=== PATIENT | female | born 1955 | race African-American/Black ===

== ENCOUNTER 2017-11-28 20:48 | Inpatient (IN) | payer MEDICAID, OTHER ==
[~2017-11-28] VITALS: Ht 152.4 cm; Wt 62.9 kg
[2017-11-28] MEDS ORDERED: ONDANSETRON HCL 4MG/2ML VIAL IV STA (21:12)
[2017-11-28] MEDS ORDERED: MORPHINE SULFATE 4 MG/ML CPJ (NOT FOR IM USE) IV STA (21:12)
[2017-11-28] MEDS ORDERED: HYDRALAZINE 20MG/ML VIAL IV ONE (21:15)
[2017-11-28 21:50] LABS: CHLORIDE 101 mEq/L (98-107)
[2017-11-28 21:51] LABS: INR 1.1; PROTHROMBIN TIME 11.8 sec (9.4-11.6)
[2017-11-28 21:55] LABS: AMMONIA 27 uMol/L (<32); ETHANOL BLOOD < 10 mg/dL
[2017-11-28 21:59] LABS: CREATINE KINASE 192 IU/L (26-192)
[2017-11-28 22:02] LABS: CARBAMAZEPINE < 0.5 ug/mL (4-12); PHENOBARBITAL < 2.1 ug/mL (15.0-40.0)
[2017-11-28 22:07] LABS: BASOPHILS % 0.7 % (0.0-2.0); HEMATOCRIT. 43.9 % (36.0-48.0); HEMOGLOBIN. 14.9 g/dL (12.0-16.0); LYMPHOCYTES % 11.9 % (20.0-50.0); MEAN CORPUSCULAR HEMOGLOBIN 32.8 pg (28.0-32.0); MEAN CORPUSCULAR VOLUME 96.4 fL (81.0-99.0); MEAN PLATELET VOLUME 7.8 fl (7.4-10.4); MONOCYTES % 7.5 % (2.0-8.0); NEUTROPHILS % 79.9 % (40.0-76.0); PLATELET 264 x1000/uL (130-400); RED BLOOD CELL COUNT 4.55 mill/uL (4.2-5.4); RED CELL DISTRIBUTION WIDTH 14.7 % (11.6-14.6)
[2017-11-29] MEDS ORDERED: LORAZEPAM 2MG/ML CPJ IV ONE
[2017-11-29 00:16] LABS: CLARITY URINE CLOUDY (CLEAR); COLOR URINE DARK YELLOW (YELLOW); KETONES URINE TRACE (NEGATIVE); LEUKOCYTE ESTERASE URINE NEGATIVE (NEGATIVE); NITRITE URINE NEGATIVE (NEGATIVE); OCCULT BLOOD URINE 3+ (NEGATIVE); PH URINE 5.5 (4.5-8.0); PROTEIN URINE 2+ (NEGATIVE); SPECIFIC GRAVITY URINE 1.027 (1.005-1.030)
[2017-11-29 00:37] LABS: *COCAINE SCREEN URINE NEGATIVE (NEGATIVE); CANNABINOID URINE SCREEN PRESUMTIVE POSITIVE (NEGATIVE); METHADONE URINE SCREEN NEGATIVE (NEGATIVE); OPIATES URINE SCREEN PRESUMTIVE POSITIVE (NEGATIVE); PHENCYCLIDINE URINE SCREEN NEGATIVE (NEGATIVE)
[2017-11-29 00:38] LABS: *AMPHETAMINES SCREEN URINE NEGATIVE (NEGATIVE); *BARBITURATES SCREEN URINE NEGATIVE (NEGATIVE); *BENZODIAZEPINES SCREEN URINE NEGATIVE (NEGATIVE)
[2017-11-29] MEDS ORDERED: METOCLOPRAMIDE HCL 10MG/2ML VIAL IV ONE (01:30)
[2017-11-29] MEDS ORDERED: KETOROLAC 30MG/ML VIAL IV ONE (01:30)
[2017-11-29 08:00] VITALS: BP 127/60
[2017-11-29] MEDS ORDERED: TRAM50TA3 PO (08:17)
[2017-11-29] MEDS ORDERED: CARI350T PO (08:17)
[2017-11-29] MEDS ORDERED: MAGNESIUM/ALUMINUM HYDROXIDE/SIMETHICONE 30ML UDC PO PRN (10:00)
[2017-11-29] MEDS ORDERED: GUAIFENESIN 200MG/10ML SUGAR FREE UDC PO PRN (10:00)
[2017-11-29] MEDS ORDERED: IPRATROPIUM/ALBUTEROL 0.5-3(2.5)MG/3ML NEB INH PRN (10:00)
[2017-11-29] MEDS ORDERED: NA PHOS,M-B/NA PHOS,DI-BA ENEMA 118ML PR PRN (10:00)
[2017-11-29] MEDS ORDERED: DOCUSATE SODIUM 100MG CAPSULE PO PRN (10:00)
[2017-11-29] MEDS ORDERED: ACETAMINOPHEN 650MG/20.3ML UDC GT PRN (10:00)
[2017-11-29] MEDS ORDERED: HYDROCODONE/ACETAMINOPHEN 5/325MG TABLET PO PRN (10:00)
[2017-11-29] MEDS ORDERED: LORAZEPAM 0.5MG TABLET PO PRN (10:00)
[2017-11-29] MEDS ORDERED: CLONIDINE 0.1MG TABLET PO PRN (10:00)
[2017-11-29] MEDS ORDERED: ACETAMINOPHEN 650MG SUPP PR PRN (10:00)
[2017-11-29] MEDS ORDERED: DIPHENHYDRAMINE 50MG/ML VIAL IV PRN (10:00)
[2017-11-29] MEDS ORDERED: HYDROCODONE/APAP 7.5/325MG 1 TAB TABLET PO PRN (10:00)
[2017-11-29] MEDS ORDERED: LISI40TA4 PO (10:53)
[2017-11-29 10:54] VITALS: BP 127/60
[2017-11-29 12:00] VITALS: BP 147/81
[2017-11-29 13:09] LABS: HEMATOCRIT 41.4 % (36.0-48.0); HEMOGLOBIN 13.8 g/dL (12.0-16.0); MEAN CORPUSCULAR HEMOGLOBIN 32.1 pg (28.0-32.0); PLATELET 244 x1000/uL (130-400); RED BLOOD CELL COUNT 4.32 mill/uL (4.2-5.4); RED CELL DISTRIBUTION WIDTH 14.9 % (11.6-14.6)
[2017-11-29 13:20] LABS: CHLORIDE 101 mEq/L (98-107)
[2017-11-29] MEDS ORDERED: LOSA25TA12 PO (14:28)
[2017-11-29] MEDS: ONDANSETRON HCL 4MG/2ML VIAL IV PRN ×2 (14:38→21:25)
[2017-11-29 16:00] VITALS: BP 132/82
[2017-11-29 16:33] LABS: CREATINE KINASE 304 IU/L (26-192)
[2017-11-29] MEDS ORDERED: POTASSIUM CHLORIDE 20MEQ TABLET SR PO NR (17:30)
[2017-11-29] MEDS ORDERED: CARISOPRODOL 350 MG TABLET PO SCH (18:06)
[2017-11-29] MEDS: LISINOPRIL 20MG TABLET PO SCH (18:46)
[2017-11-29] MEDS: TRAMADOL 50MG TABLET PO SCH (18:47)
[2017-11-29 20:00] VITALS: BP 150/68
[2017-11-29] MEDS ORDERED: CARISOPRODOL 350 MG TABLET PO PRN (20:30)
[2017-11-29] MEDS: ACETAMINOPHEN 325MG TABLET PO PRN (21:25)
[2017-11-29] MEDS: METOPROLOL TARTRATE 25MG TABLET PO SCH (21:25)
[2017-11-29 23:25] LABS: CREATINE KINASE 343 IU/L (26-192)
[2017-11-30] VITALS: BP 142/76
[2017-11-30 04:00] VITALS: BP 126/74
[2017-11-30 07:09] LABS: CHLORIDE 102 mEq/L (98-107)
[2017-11-30 07:15] LABS: PHOSPHORUS 2.3 mg/dL (2.5-4.9)
[2017-11-30 07:16] LABS: HDL CHOLESTEROL 114 mg/dL (40-59); LDL CHOLESTEROL 32 mg/dL (5-100)
[2017-11-30 07:21] LABS: CREATINE KINASE 338 IU/L (26-192); T4 FREE 1.08 ng/dL (0.76-1.46)
[2017-11-30 07:25] LABS: BASOPHILS % 0.8 % (0.0-2.0); EOSINOPHILS % 0.4 % (0.0-5.0); HEMATOCRIT. 39.7 % (36.0-48.0); HEMOGLOBIN. 13.1 g/dL (12.0-16.0); LYMPHOCYTES % 30.8 % (20.0-50.0); MEAN CORPUSCULAR HEMOGLOBIN 31.9 pg (28.0-32.0); MEAN CORPUSCULAR VOLUME 96.9 fL (81.0-99.0); MEAN PLATELET VOLUME 8.2 fl (7.4-10.4); MONOCYTES % 11.3 % (2.0-8.0); NEUTROPHILS % 56.7 % (40.0-76.0); PLATELET 190 x1000/uL (130-400)
[2017-11-30 07:43] LABS: AMMONIA 50 uMol/L (<32)
[2017-11-30 08:00] VITALS: BP 127/69
[2017-11-30] MEDS: LISINOPRIL 20MG TABLET PO SCH (08:41)
[2017-11-30] MEDS: TRAMADOL 50MG TABLET PO SCH (08:42)
[2017-11-30] MEDS: METOPROLOL TARTRATE 25MG TABLET PO SCH ×2 (08:42→20:05)
[2017-11-30 12:00] VITALS: BP 150/88
[2017-11-30] MEDS: ONDANSETRON HCL 4MG/2ML VIAL IV PRN (15:36)
[2017-11-30 15:37] VITALS: BP 158/80
[2017-11-30] MEDS ORDERED: ONDANSETRON HCL 4MG/2ML VIAL IV PRN (19:15)
[2017-11-30 20:00] VITALS: BP 156/86
[2017-11-30] MEDS: ACETAMINOPHEN 325MG TABLET PO PRN (20:05)
[2017-12-01] VITALS: BP 157/78
[2017-12-01 04:00] VITALS: BP 127/63
[2017-12-01 06:04] LABS: BASOPHILS % 0.5 % (0.0-2.0); EOSINOPHILS % 0.5 % (0.0-5.0); HEMATOCRIT. 38.8 % (36.0-48.0); HEMOGLOBIN. 12.9 g/dL (12.0-16.0); LYMPHOCYTES % 26.1 % (20.0-50.0); MEAN CORPUSCULAR HEMOGLOBIN 32.5 pg (28.0-32.0); MEAN CORPUSCULAR VOLUME 97.8 fL (81.0-99.0); MONOCYTES % 11.3 % (2.0-8.0); NEUTROPHILS % 61.6 % (40.0-76.0); PLATELET 177 x1000/uL (130-400); RED BLOOD CELL COUNT 3.96 mill/uL (4.2-5.4); RED CELL DISTRIBUTION WIDTH 14.9 % (11.6-14.6)
[2017-12-01 06:11] LABS: AMMONIA 31 uMol/L (<32)
[2017-12-01 06:35] LABS: CHLORIDE 103 mEq/L (98-107)
[2017-12-01 06:46] LABS: PHOSPHORUS 3.1 mg/dL (2.5-4.9)
[2017-12-01 06:48] LABS: CREATINE KINASE 207 IU/L (26-192)
[2017-12-01 07:50] VITALS: BP 142/63
[2017-12-01] MEDS: TRAMADOL 50MG TABLET PO SCH (08:41)
[2017-12-01] MEDS: METOPROLOL TARTRATE 25MG TABLET PO SCH ×2 (08:42→21:59)
[2017-12-01] MEDS: LISINOPRIL 20MG TABLET PO SCH (08:42)
[2017-12-01] MEDS ORDERED: MAGNESIUM 1 G PREMIX 100 ML IV SCH (11:00)
[2017-12-01 12:00] VITALS: BP 141/75
[2017-12-01] MEDS: METOCLOPRAMIDE HCL 10MG TABLET PO SCH ×2 (13:29→21:59)
[2017-12-01] MEDS: LOSARTAN POTASSIUM 50 MG TABLET PO SCH (15:30)
[2017-12-01 16:00] VITALS: BP 106/50
[2017-12-01 20:00] VITALS: BP 133/63
[2017-12-02] VITALS: BP 112/61
[2017-12-02 04:00] VITALS: BP 115/58
[2017-12-02 06:22] LABS: BASOPHILS % 0.5 % (0.0-2.0); EOSINOPHILS % 0.5 % (0.0-5.0); HEMATOCRIT. 39.3 % (36.0-48.0); LYMPHOCYTES % 22.5 % (20.0-50.0); MEAN CORPUSCULAR HEMOGLOBIN 32.3 pg (28.0-32.0); MEAN CORPUSCULAR VOLUME 97.8 fL (81.0-99.0); MEAN PLATELET VOLUME 8.4 fl (7.4-10.4); MONOCYTES % 12.4 % (2.0-8.0); NEUTROPHILS % 64.1 % (40.0-76.0); PLATELET 179 x1000/uL (130-400); RED BLOOD CELL COUNT 4.02 mill/uL (4.2-5.4); RED CELL DISTRIBUTION WIDTH 14.5 % (11.6-14.6)
[2017-12-02] MEDS: METOCLOPRAMIDE HCL 10MG TABLET PO SCH ×2 (06:23→14:00)
[2017-12-02 07:18] LABS: CHLORIDE 103 mEq/L (98-107)
[2017-12-02 07:27] LABS: AMMONIA 36 uMol/L (<32)
[2017-12-02 07:44] LABS: PHOSPHORUS 3.3 mg/dL (2.5-4.9)
[2017-12-02 07:47] LABS: CREATINE KINASE 137 IU/L (26-192)
[2017-12-02] MEDS: METOPROLOL TARTRATE 25MG TABLET PO SCH ×2 (09:00→14:39)
[2017-12-02] MEDS: LOSARTAN POTASSIUM 50 MG TABLET PO SCH ×2 (09:00→14:39)
[2017-12-02] MEDS: TRAMADOL 50MG TABLET PO SCH (10:07)
[2017-12-02] MEDS ORDERED: METO25TA6 PO (14:53)
[2017-12-02] MEDS ORDERED: DOCU-138 PO (14:53)
[2017-12-02] MEDS ORDERED: METO10TA3 PO (14:53)
[2017-12-02] MEDS ORDERED: LOSA50TA3 PO (14:53)
[2017-12-02 14:56] VITALS: BP 125/66
== END 2017-12-02 15:36 | disposition home or self-care (01) | DRG 254 ==
LOC: ER 21:06 → 7WST 11-29 02:26 → ENRESERV 11-29 04:25
PROVIDERS: ADMIT Internal Medicine; ATTEND Internal Medicine
DX: K43.9 Ventral hernia without obstruction or gangrene (principal); I10 Essential (primary) hypertension; N39.0 Urinary tract infection, site not specified; G89.29 Other chronic pain; E87.6 Hypokalemia; R00.0 Tachycardia, unspecified; M54.9 Dorsalgia, unspecified; Z88.2 Allergy status to sulfonamides
CPT/HCPCS: 36415; 70450; 71045; 74176; 76700; 80048; 80053; 80061; 80156; 80165; 80184; 80185; 80305; 80307; 80329; 81003; 82140; 82550; 82962; 83036; 83690; 83735; 83880; 84100; 84439; 84443; 84481; 84484; 85025; 85027; 85610; 93005; 96374; 96375; 97162; 97165; 99285; G0482; J0360; J1200; J1885; J2060; J2270; J2405; J2765; J3475; J8597

== ENCOUNTER 2018-02-23 11:41 | Emergency (ER) | payer OTHER, MEDICAID ==
[~2018-02-23] VITALS: Ht 152.4 cm; Wt 61.5 kg
[~2018-02-23 11:41] MED LIST: DOCU-138 PO; LOSA50TA3 PO; METO10TA3 PO; METO25TA6 PO; S350 PO; TRAM50TA3 PO
[2018-02-23] MEDS ORDERED: CLONIDINE 0.1MG TABLET PO ONE (12:30)
[2018-02-23 13:22] LABS: EOSINOPHILS % 0.4 % (0.0-5.0); LYMPHOCYTES % 32.7 % (20.0-50.0); MEAN CORPUSCULAR HEMOGLOBIN 31.9 pg (28.0-32.0); MEAN PLATELET VOLUME 7.8 fl (7.4-10.4); MONOCYTES % 11.1 % (2.0-8.0); NEUTROPHILS % 54.8 % (40.0-76.0); PLATELET 221 x1000/uL (130-400); RED BLOOD CELL COUNT 4.07 mill/uL (4.2-5.4); RED CELL DISTRIBUTION WIDTH 15.1 % (11.6-14.6)
[2018-02-23 13:30] LABS: CHLORIDE 108 mEq/L (98-107); INR 1.1; PROTHROMBIN TIME 10.9 sec (9.1-11.1)
[2018-02-23 14:11] LABS: CLARITY URINE CLEAR (CLEAR); COLOR URINE YELLOW (YELLOW); KETONES URINE NEGATIVE (NEGATIVE); LEUKOCYTE ESTERASE URINE NEGATIVE (NEGATIVE); NITRITE URINE NEGATIVE (NEGATIVE); OCCULT BLOOD URINE 2+ (NEGATIVE); PH URINE 5.5 (4.5-8.0); PROTEIN URINE NEGATIVE (NEGATIVE); SPECIFIC GRAVITY URINE 1.017 (1.005-1.030); UROBILINOGEN URINE 0.2 E.U./dL (0.2-1.0)
[2018-02-23 14:49] VITALS: BP 153/84
== END 2018-02-23 14:52 | disposition home or self-care (01) ==
LOC: ER 11:41
DX: I10 Essential (primary) hypertension (principal); R41.82 Altered mental status, unspecified; R00.1 Bradycardia, unspecified; M25.562 Pain in left knee; M25.561 Pain in right knee; R10.9 Unspecified abdominal pain
CPT/HCPCS: 36415; 70450; 71045; 80053; 81003; 84484; 85025; 85610; 93005; 99285

== ENCOUNTER 2019-06-18 23:36 | Inpatient (IN) | payer MEDICAID, OTHER ==
[~2019-06-18] VITALS: Ht 152.4 cm; Wt 61.2 kg
[~2019-06-18 23:36] MED LIST changes: +CARI-166 PO; -S350 PO
[2019-06-19] MEDS ORDERED: SODIUM CHLORIDE 0.9% 1,000 ML IV ONE (02:07)
[2019-06-19] MEDS ORDERED: MORPHINE SULFATE 4 MG/ML CPJ (NOT FOR IM USE) IV STA (02:07)
[2019-06-19] MEDS ORDERED: FAMOTIDINE 20MG/2ML VIAL IV STA (02:07)
[2019-06-19] MEDS ORDERED: ONDANSETRON HCL 4MG/2ML INJ IV STA (02:07)
[2019-06-19 02:45] LABS: BASOPHILS % 1.2 % (0.0-2.0); EOSINOPHILS % 0.6 % (0.0-5.0); HEMATOCRIT. 43.1 % (36.0-48.0); LYMPHOCYTES % 34.9 % (20.0-50.0); MEAN PLATELET VOLUME 7.8 fl (7.4-10.4); MONOCYTES % 9.4 % (2.0-8.0); NEUTROPHILS % 53.9 % (40.0-76.0); PLATELET 247 x1000/uL (130-400); RED BLOOD CELL COUNT 4.53 mill/uL (4.2-5.4)
[2019-06-19 02:49] LABS: CHLORIDE 108 mEq/L (98-107)
[2019-06-19] MEDS ORDERED: IOHEXOL-300 100 ML BOTTLE ONE (04:06)
[2019-06-19 04:57] LABS: INR 1.4; PROTHROMBIN TIME 14.3 sec (9.6-11.0)
[2019-06-19] MEDS ORDERED: DEXT 5%/0.45% NACL 1000ML 1,000 ML IV SCH (08:07)
[2019-06-19] MEDS ORDERED: HYDROCODONE/ACETAMINOPHEN 10/325MG TABLET PO PRN ×2 (08:15→09:15)
[2019-06-19] MEDS ORDERED: HYDRALAZINE 20MG/ML VIAL IV PRN (08:15)
[2019-06-19] MEDS ORDERED: GUAIFENESIN 200MG/10ML SUGAR FREE UDC PO PRN ×2 (08:15→09:15)
[2019-06-19] MEDS ORDERED: MORPHINE SULFATE 2 MG/ML CPJ (NOT FOR IM USE) IV PRN (08:15)
[2019-06-19] MEDS ORDERED: DIPHENHYDRAMINE 50MG/ML VIAL IV PRN ×2 (08:15→09:15)
[2019-06-19] MEDS ORDERED: DOCUSATE SODIUM 100MG CAPSULE PO PRN ×2 (08:15→09:15)
[2019-06-19] MEDS ORDERED: ACETAMINOPHEN 325MG TABLET PO PRN ×2 (08:15→09:15)
[2019-06-19] MEDS ORDERED: ONDANSETRON HCL 4MG/2ML INJ IV PRN (08:15)
[2019-06-19] MEDS ORDERED: MAGNESIUM/ALUMINUM HYDROXIDE/SIMETHICONE 30ML UDC PO PRN ×2 (08:15→09:15)
[2019-06-19] MEDS ORDERED: CLONIDINE 0.1MG TABLET PO PRN ×2 (08:15→09:15)
[2019-06-19] MEDS ORDERED: NA PHOS,M-B/NA PHOS,DI-BA ENEMA 118ML PR PRN ×2 (08:15→09:15)
[2019-06-19] MEDS ORDERED: LORAZEPAM 2MG/ML CPJ IV PRN (08:15)
[2019-06-19] MEDS ORDERED: IPRATROPIUM/ALBUTEROL 0.5-3(2.5)MG/3ML NEB HHN PRN ×2 (08:15→09:15)
[2019-06-19] MEDS ORDERED: POTASSIUM CHLORIDE INJ 40 MEQ in DEXT 5% WATER 250 ML IV ONE (08:30)
[2019-06-19 08:55] VITALS: BP 162/92
[2019-06-19 10:11] VITALS: BP 162/92
[2019-06-19] MEDS: ONDANSETRON HCL 4MG/2ML INJ IV PRN (10:34)
[2019-06-19] MEDS: HYDRALAZINE 20MG/ML VIAL IV PRN (10:34)
[2019-06-19] MEDS ORDERED: POTASSIUM CHLORIDE INJ 40 MEQ in DEXT 5% WATER 250 ML IV SCH (11:30)
[2019-06-19 12:00] VITALS: BP 134/66
[2019-06-19] MEDS: MORPHINE SULFATE 2 MG/ML CPJ (NOT FOR IM USE) IV PRN (12:44)
[2019-06-19] MEDS ORDERED: SODIUM CHLORIDE 0.9% INJ 3ML FLUSH IVF SCH (14:00)
[2019-06-19] MEDS ORDERED: PNEUMOCOCCAL 23-VAL P-SAC VAC 0.5 ML IM ONE (15:00)
[2019-06-19] MEDS ORDERED: AMLO5TAB88 MT (15:33)
[2019-06-19] MEDS ORDERED: [UNRECOGNIZED DRUG - OTHER] (15:33)
[2019-06-19] MEDS ORDERED: mapap PO (15:33)
[2019-06-19] MEDS ORDERED: RAMI10CA19 MT (15:34)
[2019-06-19] MEDS ORDERED: CYCL10TA7 MT (15:34)
[2019-06-19] MEDS: DEXT 5%/0.45% NACL 1000ML 1,000 ML IV SCH ×2 (15:38→23:50)
[2019-06-19] MEDS: SODIUM CHLORIDE 0.9% INJ 3ML FLUSH IVF SCH ×2 (15:46→21:45)
[2019-06-19 16:00] VITALS: BP 120/65
[2019-06-19] MEDS: PANTOPRAZOLE SODIUM 40 MG/VIAL IV SCH (16:58)
[2019-06-19 17:11] LABS: HEMATOCRIT 40.3 % (36.0-48.0); HEMOGLOBIN 13.4 g/dL (12.0-16.0)
[2019-06-19 17:21] LABS: CREATINE KINASE 730 IU/L (26-192)
[2019-06-19 20:00] VITALS: BP 156/89
[2019-06-20] VITALS: BP 135/74
[2019-06-20 01:45] LABS: CREATINE KINASE 634 IU/L (26-192)
[2019-06-20 01:46] LABS: CREATINE KINASE MB FRACTION 2.2 ng/mL (0.5-3.6)
[2019-06-20 04:00] VITALS: BP 156/87
[2019-06-20] MEDS: SODIUM CHLORIDE 0.9% INJ 3ML FLUSH IVF SCH ×3 (06:29→21:58)
[2019-06-20 08:00] VITALS: BP 154/94
[2019-06-20] MEDS: PANTOPRAZOLE SODIUM 40 MG/VIAL IV SCH ×2 (09:06→18:39)
[2019-06-20] MEDS: MORPHINE SULFATE 2 MG/ML CPJ (NOT FOR IM USE) IV PRN ×2 (09:07→22:35)
[2019-06-20 11:03] LABS: BASOPHILS % 0.4 % (0.0-2.0); EOSINOPHILS % 0.2 % (0.0-5.0); HEMATOCRIT. 40.7 % (36.0-48.0); HEMOGLOBIN. 13.5 g/dL (12.0-16.0); LYMPHOCYTES % 23.8 % (20.0-50.0); MEAN CORPUSCULAR HEMOGLOBIN 31.4 pg (28.0-32.0); MEAN PLATELET VOLUME 7.9 fl (7.4-10.4); MONOCYTES % 11.1 % (2.0-8.0); NEUTROPHILS % 64.5 % (40.0-76.0); PLATELET 173 x1000/uL (130-400); RED BLOOD CELL COUNT 4.29 mill/uL (4.2-5.4); RED CELL DISTRIBUTION WIDTH 14.8 % (11.6-14.6)
[2019-06-20 12:00] VITALS: BP 134/79
[2019-06-20] MEDS: DEXT 5%/0.45% NACL 1000ML 1,000 ML IV SCH (12:49)
[2019-06-20 16:00] VITALS: BP 149/88
[2019-06-20] MEDS: LORAZEPAM 2MG/ML CPJ IV PRN (21:58)
[2019-06-21] MEDS: DEXT 5%/0.45% NACL 1000ML 1,000 ML IV SCH ×2 (03:23→18:47)
[2019-06-21] MEDS: SODIUM CHLORIDE 0.9% INJ 3ML FLUSH IVF SCH ×3 (05:13→20:45)
[2019-06-21 08:00] VITALS: BP 112/80
[2019-06-21 08:14] LABS: BASOPHILS % 0.4 % (0.0-2.0); EOSINOPHILS % 1.1 % (0.0-5.0); HEMATOCRIT. 38.2 % (36.0-48.0); HEMOGLOBIN. 12.6 g/dL (12.0-16.0); LYMPHOCYTES % 31.7 % (20.0-50.0); MEAN CORPUSCULAR HEMOGLOBIN 31.4 pg (28.0-32.0); MEAN CORPUSCULAR VOLUME 95.5 fL (81.0-99.0); MEAN PLATELET VOLUME 7.8 fl (7.4-10.4); MONOCYTES % 12.7 % (2.0-8.0); NEUTROPHILS % 54.1 % (40.0-76.0); PLATELET 165 x1000/uL (130-400); RED BLOOD CELL COUNT 4.01 mill/uL (4.2-5.4); RED CELL DISTRIBUTION WIDTH 14.8 % (11.6-14.6)
[2019-06-21 08:19] LABS: CHLORIDE 106 mEq/L (98-107)
[2019-06-21] MEDS: ONDANSETRON HCL 4MG/2ML INJ IV PRN (09:04)
[2019-06-21] MEDS: PANTOPRAZOLE SODIUM 40 MG/VIAL IV SCH ×2 (09:04→18:55)
[2019-06-21] MEDS: MORPHINE SULFATE 2 MG/ML CPJ (NOT FOR IM USE) IV PRN ×3 (09:06→22:50)
[2019-06-21] MEDS ORDERED: POTASSIUM CHLORIDE 20MEQ TABLET SR PO SCH (10:00)
[2019-06-21 12:00] VITALS: BP 134/85
[2019-06-21 16:00] VITALS: BP 134/76
[2019-06-21 20:00] VITALS: BP 176/108
[2019-06-21] MEDS: HYDRALAZINE 20MG/ML VIAL IV PRN (20:46)
[2019-06-21] MEDS: LORAZEPAM 2MG/ML CPJ IV PRN (20:46)
[2019-06-22] VITALS: BP 116/67
[2019-06-22 04:00] VITALS: BP 118/68
[2019-06-22] MEDS: SODIUM CHLORIDE 0.9% INJ 3ML FLUSH IVF SCH (06:24)
[2019-06-22] MEDS: DEXT 5%/0.45% NACL 1000ML 1,000 ML IV SCH (06:30)
[2019-06-22 08:00] VITALS: BP 144/96
[2019-06-22] MEDS: PANTOPRAZOLE SODIUM 40 MG/VIAL IV SCH (08:37)
[2019-06-22] MEDS: MORPHINE SULFATE 2 MG/ML CPJ (NOT FOR IM USE) IV PRN (11:31)
[2019-06-22 11:48] VITALS: BP 144/96
== END 2019-06-22 14:29 | disposition home or self-care (01) | DRG 253 ==
LOC: ER 23:36 → 8WST 06-19 05:12 → EDBEDREQTM 06-19 05:27 → EDBEDREQ 06-19 05:27 → ENRESERV 06-19 07:22 → ER 06-19 09:00 → 6WST 06-21 23:43
PROVIDERS: ADMIT Internal Medicine; ATTEND Internal Medicine
DX: K92.2 Gastrointestinal hemorrhage, unspecified (principal); E87.2 Acidosis; E87.8 Other disorders of electrolyte and fluid balance, not elsewhere classified; K92.0 Hematemesis; K44.9 Diaphragmatic hernia without obstruction or gangrene; E87.6 Hypokalemia; K76.0 Fatty (change of) liver, not elsewhere classified; I10 Essential (primary) hypertension; Z88.2 Allergy status to sulfonamides; Z98.891 History of uterine scar from previous surgery
CPT/HCPCS: 36415; 71045; 74177; 80048; 82270; 82550; 82553; 83605; 84484; 85014; 85018; 86850; 86900; 90732; 93970; 96374; 99291; C9113; J0360; J2060; J2270; J2405; J3480; J3490; J7030; J7060; Q9967

== ENCOUNTER 2019-09-20 13:29 | Emergency (ER) | payer MEDICAID ==
[~2019-09-20] VITALS: Ht 165.1 cm; Wt 68.0 kg
[~2019-09-20 13:29] MED LIST changes: +AMLO5TAB88 MT; -CARI-166 PO; +CYCL10TA7 MT; -DOCU-138 PO; -METO10TA3 PO; +RAMI10CA68 MT; -TRAM50TA3 PO; +mapap PO
[2019-09-20] MEDS ORDERED: HYDROCODONE/ACETAMINOPHEN 5/325MG TABLET PO ONE (16:00)
[2019-09-20] MEDS ORDERED: ONDANSETRON 4MG ODT PO ONE (16:15)
[2019-09-20 18:06] VITALS: BP 112/68
== END 2019-09-20 18:06 | disposition home or self-care (01) ==
LOC: ER 13:29
DX: K40.90 Unilateral inguinal hernia, without obstruction or gangrene, not specified as recurrent (principal); I10 Essential (primary) hypertension; F12.10 Cannabis abuse, uncomplicated; Z98.890 Other specified postprocedural states; Z88.2 Allergy status to sulfonamides; Z79.899 Other long term (current) drug therapy
CPT/HCPCS: 74176; 99284; Q0162

== ENCOUNTER 2021-10-13 13:19 | Emergency (ER) | payer OTHER, MEDICAID ==
[~2021-10-13] VITALS: Ht 160 cm; Wt 59.0 kg
[2021-10-13] MEDS ORDERED: ASPIRIN 81MG TABLET PO ONE (14:15)
[2021-10-13 14:34] LABS: BASOPHILS % 1.1 % (0.0-2.0); EOSINOPHILS % 0.3 % (0.0-5.0); HEMATOCRIT. 43.8 % (36.0-48.0); HEMOGLOBIN. 14.6 g/dL (12.0-16.0); LYMPHOCYTES % 41.7 % (20.0-50.0); NEUTROPHILS % 49.9 % (40.0-76.0); PLATELET 196 x1000/uL (130-400); RED BLOOD CELL COUNT 4.56 mill/uL (4.2-5.4); RED CELL DISTRIBUTION WIDTH 13.5 % (11.6-14.6)
[2021-10-13 14:51] LABS: CHLORIDE 111 mEq/L (98-107)
[2021-10-13 15:07] LABS: *AMPHETAMINES SCREEN URINE NEGATIVE (NEGATIVE); *BARBITURATES SCREEN URINE NEGATIVE (NEGATIVE); *BENZODIAZEPINES SCREEN URINE NEGATIVE (NEGATIVE); *COCAINE SCREEN URINE NEGATIVE (NEGATIVE)
[2021-10-13 15:07] LABS: ETHANOL BLOOD 350 mg/dL
[2021-10-13 15:08] LABS: CANNABINOID URINE SCREEN NEGATIVE (NEGATIVE); METHADONE URINE SCREEN NEGATIVE (NEGATIVE); OPIATES URINE SCREEN NEGATIVE (NEGATIVE); PHENCYCLIDINE URINE SCREEN NEGATIVE (NEGATIVE)
[2021-10-13 15:41] VITALS: BP 120/82
== END 2021-10-13 16:36 | disposition left against medical advice (07) ==
LOC: ER 13:44
DX: F10.129 Alcohol abuse with intoxication, unspecified (principal); I49.9 Cardiac arrhythmia, unspecified; Y90.8 Blood alcohol level of 240 mg/100 ml or more
CPT/HCPCS: 36415; 71045; 80053; 80305; 80320; 83880; 84484; 85025; 93005; 99285; G0480

== ENCOUNTER 2022-01-25 18:27 | Emergency (ER) | payer OTHER, MEDICAID ==
[~2022-01-25] VITALS: Ht 157.5 cm; Wt 68.0 kg
[~2022-01-25 18:27] MED LIST changes: +CYCL10TA21 MT; -CYCL10TA7 MT
[2022-01-25 18:32] VITALS: BP 136/70
[2022-01-25] MEDS ORDERED: ONDANSETRON HCL 4MG/2ML INJ IV STA (18:40)
[2022-01-25] MEDS ORDERED: MORPHINE SULFATE 4 MG/ML CPJ (NOT FOR IM USE) IV STA (18:40)
[2022-01-25 20:01] LABS: BASOPHILS % 0.7 % (0.0-2.0); EOSINOPHILS % 0.4 % (0.0-5.0); HEMATOCRIT. 34.9 % (36.0-48.0); HEMOGLOBIN. 11.2 g/dL (12.0-16.0); LYMPHOCYTES % 41.2 % (20.0-50.0); MEAN CORPUSCULAR HEMOGLOBIN 30.2 pg (28.0-32.0); MEAN CORPUSCULAR VOLUME 94.5 fL (81.0-99.0); MEAN PLATELET VOLUME 7.3 fl (7.4-10.4); MONOCYTES % 8.9 % (2.0-8.0); NEUTROPHILS % 48.8 % (40.0-76.0); PLATELET 223 x1000/uL (130-400); RED BLOOD CELL COUNT 3.69 mill/uL (4.2-5.4); RED CELL DISTRIBUTION WIDTH 15.6 % (11.6-14.6)
[2022-01-25 20:08] LABS: CHLORIDE 111 mEq/L (98-107)
[2022-01-25 20:17] LABS: C REACTIVE PROTEIN QUANT 1.2 mg/L (0.0-3.0)
== END 2022-01-25 21:26 | disposition left against medical advice (07) ==
LOC: ER 18:27
DX: M54.59 Other low back pain (principal); R20.0 Anesthesia of skin
CPT/HCPCS: 36415; 80053; 85025; 85651; 86140; 99283